=== PATIENT | female | born 1955 | race Caucasian/White ===

== ENCOUNTER 2020-01-22 07:26 | Outpatient (CLI) | payer MEDICARE, SELFPAY ==
--- NOTE | ~2020-01-22 | MM_ITS ---
EXAMINATION: MM screening sonia BI w erlin HISTORY: Screening mammogram TECHNIQUE: Craniocaudal and mediolateral oblique 3-D tomosynthesis images were obtained and synthetic 2-D images were generated. CAD analysis was submitted and interpreted. COMPARISON: 07/23/2018 bilateral digital screening mammogram 03/01/2017 diagnostic left digital mammogram 02/16/2017, 01/30/2016 bilateral digital screening mammogram examinations BREAST PARENCHYMAL COMPOSITION: There are scattered areas of fibroglandular density. FINDINGS: Occasional bilateral benign calcifications. Small stable bilateral circumscribed low-density opacities most consistent with intramammary lymph no penny. There is no evidence of suspicious mass, calcification, or architectural distortion to suggest m alignancy in either breast. There has been no suspicious interval change. IMPRESSION: 1. No mammographic evidence of malignancy. 2. Recommend routine screening mammography in one year. BI-RADS Category 2: Benign finding(s). Reviewed, dictated and finalized at location A. HANGER
== END 2020-01-22 07:27 | disposition home or self-care (01) ==
PROVIDERS: PCP Family Medicine; Visit Provider Family Medicine
DX: Z12.31 Encounter for screening mammogram for malignant neoplasm of breast (principal)
CPT/HCPCS: 77063; 77067

== ENCOUNTER 2021-04-07 08:14 | Outpatient (CLI) | payer MEDICARE, SELFPAY ==
--- NOTE | ~2021-04-07 | MM_ITS ---
EXAMINATION: MM screening sonia BI w erlin HISTORY: Screening TECHNIQUE: Craniocaudal and mediolateral oblique 3-D tomosynthesis images were obtained and synthetic 2-D images were generated. CAD analysis was submitted and interpreted. COMPARISON: Comparison to multiple prior studies sequentially, with oldest reviewed study dated 11/07. BREAST PARENCHYMAL COMPOSITION: There are scattered areas of fibroglandular density. FINDINGS: There is no evidence of suspicious mass, calcification, or architectural distortion to sugg est malignancy in either breast. There has been no suspicious interval change. IMPRESSION: 1. No mammographic evidence of malignancy. 2. Recommend routine screening mammography in one year. BI-RADS Category 1: Negative Reviewed, dictated and finalized at location A. ON PSYCHIATRIST
== END 2021-04-07 08:15 | disposition home or self-care (01) ==
LOC: ANHIMG 08:16
PROVIDERS: PCP Family Medicine; Visit Provider Family Medicine
DX: Z12.31 Encounter for screening mammogram for malignant neoplasm of breast (principal)
CPT/HCPCS: 77063; 77067

== ENCOUNTER 2022-03-05 09:13 | Outpatient (CLI) | payer MEDICARE, SELFPAY ==
--- NOTE | ~2022-03-05 | CT_ITS ---
EXAMINATION: CT lung screening DATE: 03/05/2022 09:33 INDICATION: Personal history of nicotine dependence, current smoker with 50 pack year history TECHNIQUE: Computed tomography (CT) of the chest was performed without intravenous contrast. The dose -length product (DLP) was 75.71 mGy-cm. Automated exposure control and iterative reconstruction techn ique were employed. COMPARISON: None FINDINGS: There is mild emphysema. There is a 6 mm nodule of the right middle lobe abutting the minor fissure, possibly a fissural lymph node. There is a 6 mm nodule of the right lower lobe. There is a 2 mm subpleural nodule in the left lower lobe. There is a 3 mm nodule in the right middle lobe. No p leural effusion or pneumothorax. No pathologically enlarged thoracic lymph nodes are identified. The heart size is normal. There is calcified coronary artery atherosclerosis. There is severe spondylosis of the upper lumbar spine. A healed right rib fracture is noted. IMPRESSION: 1. Lung-RADS category 3: Probably benign. Followup with noncontrast low-dose chest CT in 6 months is recommended. Reviewed, dictated and finalized at location L. OR INDEX IMPRESSION: 1. Lung-RADS category 3: Probably benign. Followup with noncontrast low-dose ch est CT in 6 months is recommended.
== END 2022-03-05 09:14 | disposition home or self-care (01) ==
PROVIDERS: PCP Family Medicine; Visit Provider Family Medicine
DX: Z12.2 Encounter for screening for malignant neoplasm of respiratory organs (principal); Z87.891 Personal history of nicotine dependence
CPT/HCPCS: 71271

== ENCOUNTER 2022-11-19 07:40 | Outpatient (CLI) | payer MEDICARE, SELFPAY ==
--- NOTE | ~2022-11-19 | CT_ITS ---
EXAMINATION: CT lung screening DATE: 11/19/2022 08:14 INDICATION: Follow-up pulmonary nodules. Lung cancer screening. TECHNIQUE: Computed tomography (CT) of the abdomen and pelvis was performed without intravenous contr ast. The dose-length product was 81.08 mGy-cm. Automated exposure control and iterative reconstructio n technique were employed. COMPARISON: 03/05/2022. FINDINGS: There is atherosclerosis of the aorta and coronary arteries. No significant pleural or paulo cardial effusion. No thoracic lymphadenopathy. There is a possible right renal mass anteriorly, and i ntermediate density. Correlation with ultrasound recommended. Stable 6 mm fissural nodule on the righ t, image 59 stable 6 mm fissural nodule, right lower lobe, image 60. Stable 5 mm right lower lobe nod ule, image 62. Additional smaller nodules in both lungs are stable. No new pulmonary nodules or neli s. No pneumothorax. No endobronchial lesions. Moderate-severe thoracic spondylosis. There are multipl e healed right rib fractures. IMPRESSION: 1. Lung-RADS category 2: Benign appearance or behavior. Continue annual screening with noncontrast lo w-dose chest CT in 12 months. Reviewed, dictated and finalized at location L. IMPRESSION: 1. Lung-RADS category 2: Benign appearance or behavior. Continue annual screeni ng with noncontrast low-dose chest CT in 12 months.
== END 2022-11-19 07:41 | disposition home or self-care (01) ==
PROVIDERS: PCP Family Medicine; Visit Provider Physician Assistant
DX: Z12.2 Encounter for screening for malignant neoplasm of respiratory organs (principal); Z87.891 Personal history of nicotine dependence
CPT/HCPCS: 71271

== ENCOUNTER 2022-11-19 08:25 | Outpatient (CLI) | payer MEDICARE, SELFPAY ==
--- NOTE | ~2022-11-19 | MM_ITS ---
EXAMINATION: MM screening sonia BI w erlin HISTORY: Screening mammogram TECHNIQUE: Craniocaudal and mediolateral oblique 3-D tomosynthesis images were obtained and synthetic 2-D images were generated. CAD analysis was submitted and interpreted. COMPARISON: April 07, 2021, January 22, 2020, July 23, 2018 bilateral screening mammogram examinat ions BREAST PARENCHYMAL COMPOSITION: There are scattered areas of fibroglandular density. FINDINGS: There is no evidence of suspicious mass, calcification, or architectural distortion to sugg est malignancy in either breast. There has been no suspicious interval change. IMPRESSION: 1. No mammographic evidence of malignancy. 2. Recommend routine screening mammography in one year. BI-RADS Category 1: Negative Reviewed, dictated and finalized at location A.
--- NOTE | ~2022-11-19 | DEXA_ITS ---
Bone Density Report Name: BINH RAMIRES Age: 67 Sex: Female Ethnicity: White Date of : 1955 Indication: postmenopausal; screening for osteoporosis; height loss; Referring Provider: CONRADO MENDEZ Study: Bone densitometry was performed. Exam Date: November 19, 2022 Accession number: [id number] Bone Density: Region BMD T-score Z-score Classification AP Spine(L3, L4) 1.175 0.7 2.9 Normal Femoral Neck (Left) 0.633 -1.9 -0.2 Osteopenia Total Hip (Left) 0.830 -0.9 0.6 Normal Femoral Neck (Right) 0.660 -1.7 0.1 Osteopenia Total Hip (Right) 0.776 -1.4 0.1 Osteopenia Total Hip Mean 0.803 -1.2 0.4 Osteopenia World Health Organization criteria for BMD impression classify patients as: Normal (T-score at or above -1.0), Osteopenia (T-score between -1.0 and -2.5), or Osteoporosis (T-score at or below -2.5). 10-year Fracture Risk(1): Major Osteoporotic Fracture 11% Hip Fracture 2.1% Reported Risk Factors: [place] (), Neck BMD=0.633, BMI=24.8 (1) FRAX(R) Version 3.08. Fracture probability calculated for an untreated patient. Fracture probability may be lower if the patient has received treatment. Clinical Information Provided by Patient: Patient maximum height was 64 Menopause Age: 46 No regular weight bearing exercise Onset of menses at age 11 Number of children 3 Impression: The patient has low bone mass, based on the Left Femoral Neck T-score. The patient has an estimated ten-year risk of hip fracture of 2.1% and an estimated ten-year risk of major fracture of 11%, based on the WHO FRAX algorithm. Discussion: BONE DENSITY IS LOW AT ONE OR MORE SKELETAL SITES. This patient's lowest T-score is low at one or more skeletal sites. It meets the World Health Organization's (WHO) criteria for ?low bone mass? (T-score between -1.0 and -2.5). The patient's 10-year risk of fracture as calculated by FRAX is less than the threshold where pharmacological therapy is recommended by the National Osteoporosis Foundation (NOF). However, all treatment decisions require clinical judgment and consideration of individual patient factors, including patient preferences, comorbidities, previous drug use, risk factors not captured in the FRAX model (e.g., frailty, falls, vitamin D deficiency, increased bone turnover, interval significant decline in bone density) and possible under or overestimation of fracture risk by FRAX. The patient should follow a healthful lifestyle (good nutrition with adequate calcium and vitamin D, and appropriate weight-bearing exercise). Follow-Up: Consider repeating this study in 2 to 3 years to reassess this patient's status, or sooner if there is some new clinical indication. Reported by: EVONNE on 11/19/2022 9:06:00 AM.
== END 2022-11-19 08:26 | disposition home or self-care (01) ==
LOC: ANHIMG 08:27
PROVIDERS: PCP Family Medicine; Visit Provider Physician Assistant
DX: Z12.31 Encounter for screening mammogram for malignant neoplasm of breast (principal); Z78.0 Asymptomatic menopausal state; M85.89 Other specified disorders of bone density and structure, multiple sites
CPT/HCPCS: 77063; 77067; 77080

== ENCOUNTER 2024-01-26 14:03 | Outpatient (CLI) | payer MEDICARE, SELFPAY ==
--- NOTE | ~2024-01-26 | CT_ITS ---
CT Scan of the Chest without Contrast: Clinical Indication: Lung cancer screening, nicotine dependence Technique: Contiguous sections were acquired throughout the chest without intravenous contrast. Dose reduction technique was used on this scan by utilizing automated exposure control and iterative recon struction technique. The dose-length product (DLP) was 72.95 mGy-cm. COMPARISON: 11/19/2022 Findings: There is no evidence of any significant mediastinal, hilar or axillary lymphadenopathy. There are ext ensive atherosclerotic calcifications of the aorta and coronary arteries. There is no evidence of pleural or pericardial effusion. Stable 4 mm right lower lobe pulmonary nodule. Stable fissural nodule along the right major fissure ( axial image 65). Stable right upper lobe nodule (axial image 65). Images through the upper abdomen reveal no abnormalities. Impression: Lung RADS 2: Benign appearance. 12 month follow-up screening CT advised. Reviewed, dictated and finalized at [facility]. H TESTER Impression: Lung RADS 2: Benign appearance. 12 month follow-up screening CT advised.
== END 2024-01-26 14:04 | disposition home or self-care (01) ==
PROVIDERS: PCP Family Medicine; Visit Provider Family Medicine
DX: Z12.2 Encounter for screening for malignant neoplasm of respiratory organs (principal); Z87.891 Personal history of nicotine dependence
CPT/HCPCS: 71271

== ENCOUNTER 2024-03-30 07:17 | Outpatient (CLI) | payer MEDICARE, SELFPAY ==
--- NOTE | ~2024-03-30 | MM_ITS ---
Corrected Report Added Isaak 03/30/2024 [facility] This report was recreated on 03/30/2024. Original report was signed by Deonte Recio M.D. on 03/30/2024 . EXAMINATION: MM screening sonia BI w isaak HISTORY: Screening TECHNIQUE: Craniocaudal and mediolateral oblique 3-D tomosynthesis images were obtained and synthetic 2-D images were generated. CAD analysis was submitted and interpreted. COMPARISON: Comparison to multiple prior studies sequentially, with oldest reviewed study dated 02/16/2017. BREAST PARENCHYMAL COMPOSITION: Dense: The breasts are heterogeneously dense, which may obscure small masses FINDINGS: There is no evidence of suspicious mass, calcification, or architectural distortion to suggest malignancy in either breast. There has been no suspicious interval change. IMPRESSION: 1. No mammographic evidence of malignancy. 2. Recommend routine screening mammography in one year. BI-RADS Category 1: Negative Reviewed, dictated and finalized at location B. RVISOR VENEER MTDD
--- OUTSIDE RECORDS SUMMARY | 2024-03-30 07:20 | XMS_ITS | Continuity of Care Document ---
Author Organization [facility] [place] Address [address] [place] [address] [address] [place] [address] Phone Care Team Providers Care Script Reader Name Role Phone Gloria Jeong Unavailable Unavailable Procedures Procedure Date Office/outpatient Visit, Est Office/outpatient Visit, Est Eye Exam & Treatment Eye Exam & Treatment Eye Exam Established Pt Eye Exam & Treatment Refraction Eye Exam & Treatment Refraction Advance Directives Directive Yes / No Effective Date File Name No Information Encounters Encounter Description Practice Location Reason(s) For Visit Diagnoses Date Provider Providers Copied on Encounter Office/outpat ient Visit, [facility], [address] [place] [address] [address], [place], [place], [id number], tel:[phone] [facility] No Information 0 Adenike Blanchard [address] , [address], [place], [address], [place]. tel:[phone] Office/outpat ient Visit, [facility], [address] [place] [address] [address], [place], [place], [id number], tel:[phone] [facility] No Information 0 Adenike Blanchard [address], [address], [place], [address], [place]. tel:[phone] [facility], [address] [place] [address] [address], [place], [place], [id number], tel:[phone] [facility] No Information May-1 8-201 0 Adenike Hernandezn. [address] , [address], [place], [place], [facility], . tel:[phone] [facility], [address] [place] [address] [address], [place], [place], [id number], tel:[phone] [facility] No Information May-1 2-200 9 Adenike Hernandezn. [address] , [address], [place], [place], [facility], . tel:[phone] [facility], [address] [place] [address] [address], [place], [place], [id number], tel:[phone] [facility] No Information Sep-2 3-200 8 Adenike Hernandezn. [address] , [address], [place], [place], [facility], . tel:[phone] [facility], [address] [place] [address] [address], [place], [place], [id number], tel:[phone] [facility] No Information May-0 6-200 8 Adenike Hernandezn. [address] [facility] , [address], [place], [place], [facility], . tel:[phone] [facility], [address] [place] [address] [address], [place], [place], [id number], tel:[phone] [facility] No Information May-0 4-200 7 Adenike Hernandezn. [address] , [address], [place], [place], [facility], . tel:[phone] Family History Family Member Type Diagnosis Age At Onset No Information Payers Payer name Insurance type Covered republican ID Authoriza tion(s) No Information Social History Type Description Quantity Date Captured Comments Sex Female Smoking Status No Information Chief Complaint And Reason For Visit No Information Reason For Referral Reason For Referral No Information History Of Present Illness Encounter Date Complaint History Of Prese nt Illness No Information Functional Status Date Functional Assessmen t No Information Instructions Date Instruction Additional Infor mation No Information Assessments Type Assessment Date No Information Patient Care Teams Name Effective Dates (start - stop) Status Members No Information
== END 2024-03-30 07:18 | disposition home or self-care (01) ==
PROVIDERS: PCP Family Medicine; Visit Provider Student in an Organized Health Care Education/Training Program
DX: Z12.31 Encounter for screening mammogram for malignant neoplasm of breast (principal)
CPT/HCPCS: 77063; 77067

== ENCOUNTER 2025-01-22 13:15 | Outpatient (CLI) | payer MEDICARE, SELFPAY ==
--- NOTE | ~2025-01-22 | DEXA_ITS ---
Bone Density Report Name: BINH RAMIRES Age: 69 Sex: Female Ethnicity: White Date of : 1955 Indication: osteopenia; height loss; Referring Provider: DEIRDRE WESLEY Study: Bone densitometry was performed. Exam Date: January 22, 2025 Accession number: [id number] Bone Density: Region BMD T-score Z-score Classification AP Spine(L3, L4) 1.240 1.3 3.6 Normal Femoral Neck (Left) 0.595 -2.3 -0.4 Osteopenia Total Hip (Left) 0.836 -0.9 0.7 Normal Femoral Neck (Right) 0.654 -1.8 0.1 Osteopenia Total Hip (Right) 0.818 -1.0 0.6 Normal Total Hip Mean 0.827 -1.0 0.7 Normal World Health Organization criteria for BMD impression classify patients as: Normal (T-score at or above -1.0), Osteopenia (T-score between -1.0 and -2.5), or Osteoporosis (T-score at or below -2.5). 10-year Fracture Risk(1): Major Osteoporotic Fracture 13% Hip Fracture 3.2% Reported Risk Factors: [place] (), Neck BMD=0.595, BMI=22.4 (1) FRAX(R) Version 3.08. Fracture probability calculated for an untreated patient. Fracture probability may be lower if the patient has received treatment. Previous Exams: Region Exam Age BMD T-score BMD Change BMD Change Date g/cm2 vs Baseline vs Previous AP Spine (L3-L4) 01/22/2025 69 1.240 1.3 0.065 (5.5%)* 0.065 (5.5%)* 11/19/2022 67 1.175 0.7 Total Hip(Left) 01/22/2025 69 0.836 -0.9 0.006 (0.7%) 0.006 (0.7%) 11/19/2022 67 0.830 -0.9 Total Hip(Right) 01/22/2025 69 0.818 -1.0 0.043 (5.5%)* 0.043 (5.5%)* 11/19/2022 67 0.776 -1.4 *Denotes significance at 95% confidence level, LSC for AP Spine = 0.022 g/cm2, LSC for Total Hip = 0.027 g/cm2 Clinical Information Provided by Patient: Has used the following medications: Vitamin D, Calcium Patient maximum height was 64 Menopause Age: 46 No regular weight bearing exercise Onset of menses at age 11 Number of children 3 Impression: The patient has low bone mass, based on the Left Femoral Neck T-score. The patient has an estimated ten-year risk of hip fracture of 3.2% and an estimated ten-year risk of major fracture of 13%, based on the WHO FRAX algorithm. No significant bone loss was observed. Discussion: BONE DENSITY IS LOW AT ONE OR MORE SKELETAL SITES. THE PATIENT'S BMD AND CLINICAL RISK FACTORS CONTRIBUTE TO THIS PATIENT'S INCREASED RISK OF FRACTURE. This patient's lowest T-score is low at one or more skeletal sites. It meets the World Health Organization's (WHO) criteria for ?low bone mass? (T-score between -1.0 and -2.5). The patient's 10-year risk of hip fracture as calculated by FRAX exceeds the threshold where pharmacological therapy is recommended by the National Osteoporosis Foundation (NOF). However, all treatment decisions require clinical judgment and consideration of individual patient factors, including patient preferences, comorbidities, previous drug use, risk factors not captured in the FRAX model (e.g., frailty, falls, vitamin D deficiency, increased bone turnover, interval significant decline in bone density) and possible under or overestimation of fracture risk by FRAX. The patient should follow a healthful lifestyle (good nutrition with adequate calcium and vitamin D, and appropriate weight-bearing exercise). Follow-Up: Consider a repeat BMD and Vertebral Fracture Assessment (VFA) exam in 2 years or sooner if medically necessary, to reassess this patient's status. Reported by: JESSICA on 01/22/2025 2:02:00 PM. Reviewed, dictated and finalized at location A.
== END 2025-01-22 13:16 | disposition home or self-care (01) ==
PROVIDERS: PCP Family Medicine; Visit Provider Family Medicine
DX: Z78.0 Asymptomatic menopausal state (principal); M85.852 Other specified disorders of bone density and structure, left thigh; M85.851 Other specified disorders of bone density and structure, right thigh
CPT/HCPCS: 77080

== ENCOUNTER 2025-01-31 08:08 | Outpatient (CLI) | payer MEDICARE, SELFPAY ==
--- NOTE | ~2025-01-31 | CT_ITS ---
EXAMINATION: CT lung screening DATE: 01/31/2025 08:29 INDICATION: Z87.891 - Personal history of nicotine dependence TECHNIQUE: Computed tomography (CT) of the chest was performed without intravenous contrast. Additional 3D reconstructions utilizing coronal maximum intensity projection (MIP) were performed. Automated exposure control and iterative reconstruction technique were employed. The dose-length product was 61 .06 mGy-cm. COMPARISON: 01/26/2024 FINDINGS: New linear bands of discoid atelectasis/scarring in the right upper lobe. No interval change in several ovoid and thin triangular paulo fissural nodules along the right major and minor fissures as well as a small partial accessory fissure at the junction of the superior and basilar segments of the right lower lobe which measure up to 6 mm in maximal diameter. There are a few additional scattered smaller <3 mm pulmonary nodules a few which are calcified consistent with old granulomatous disease. This includes a new 3 mm nodule at the superior segment of the left lower lobe. No pneumonia, pulmonary edema or pleural effusion. Heart size is normal. Atherosclerotic coronary artery calcifications. No pericardial or pleural effusions. Thoracic aorta is normal in caliber. No pathologically enlarged thoracic lymphadenopathy. Visualized upper abdomen is unremarkable. Mild upper lumbar levocurvature with severe spondylosis. IMPRESSION: 1. . Lung-RADS category 2: Benign appearance or behavior. Continue annual screening with noncontrast low-dose chest CT in 12 months. Reviewed, dictated and finalized at location A. AL LABORATORY MANAGER IMPRESSION: 1. . Lung-RADS category 2: Benign appearance or behavior. Continue annual scree didier with noncontrast low-dose chest CT in 12 months.
== END 2025-01-31 08:09 | disposition home or self-care (01) ==
PROVIDERS: PCP Family Medicine; Visit Provider Family Medicine
DX: Z12.2 Encounter for screening for malignant neoplasm of respiratory organs (principal); Z87.891 Personal history of nicotine dependence
CPT/HCPCS: 71271